=== PATIENT | female | born 1985 | race African-American/Black ===

== ENCOUNTER 2017-05-26 01:52 | Emergency (ER) | payer OTHER ==
--- NOTE | 2017-05-26 01:56 | PDOC ---
History of Present Illness - General History Source: Patient Exam Limitations: No Limitations - History of Present Illness Initial Comments: 05/26/17 02:33 The patient is a 31 year old female, an employee at our facility, with no significant PMH who presents to the emergency department after a needlestick. Patient will have an exposure work-up. Allergies: NKA Past surgical history: None reported Social history: No reported alcohol, drug, or cigarette use. <Patricia Johnson - Last Filed: 05/26/17 02:33> <Alina Strauss - Last Filed: 05/26/17 20:34> - General Stated Complaint: INJURY Time Seen by Provider: 05/26/17 01:55 Past History <Patricia Johnson - Last Filed: 05/26/17 02:33> <Alina Strauss - Last Filed: 05/26/17 20:34> - Past Medical History Allergies/Adverse Reactions: Allergies Allergy/AdvReac Type Severity Reaction Status Date / Time No Known Allergies Allergy Verified 05/26/17 02:08 Home Medications: Ambulatory Orders NK [No Known Home Medication] 05/26/17 Review of Systems - Review of Systems Able to Perform ROS?: Yes Comments:: 05/26/17 02:35 GENERAL/CONSTITUTIONAL: No fever or chills. No weakness. HEAD, EYES, EARS, NOSE AND THROAT: No change in vision. No ear pain or discharge. No sore throat. CARDIOVASCULAR: No chest pain or shortness of breath. RESPIRATORY: No cough, wheezing, or hemoptysis. GASTROINTESTINAL: No nausea, vomiting, diarrhea or constipation. GENITOURINARY: No dysuria, frequency, or change in urination. MUSCULOSKELETAL: No joint or muscle swelling or pain. No neck or back pain. SKIN: No rash NEUROLOGIC: No headache, vertigo, loss of consciousness, or change in strength/ sensation. ENDOCRINE: No increased thirst. No abnormal weight change. HEMATOLOGIC/LYMPHATIC: No anemia, easy bleeding, or history of blood clots. ALLERGIC/IMMUNOLOGIC: No hives or skin allergy. <Patricia Johnson - Last Filed: 05/26/17 02:33> *Physical Exam - Vital Signs Last Vital Signs Temp Pulse Resp BP Pulse Ox 98.0 F 91 H 16 138/66 99 05/26/17 02:06 05/26/17 02:06 05/26/17 02:06 05/26/17 02:06 05/26/17 02:06 - Physical Exam Comments: 05/26/17 02:35 GENERAL: Awake, alert, and fully oriented, in no acute distress HEAD: No signs of trauma EYES: PERRLA, EOMI, sclera anicteric, conjunctiva clear ENT: Auricles normal inspection, hearing grossly normal, nares patent, oropharynx clear without exudates. Moist mucosa NECK: Normal ROM, supple, no lymphadenopathy, JVD, or masses LUNGS: Breath sounds equal, clear to auscultation bilaterally. No wheezes, and no crackles HEART: Regular rate and rhythm, normal S1 and S2, no murmurs, rubs or gallops ABDOMEN: Soft, nontender, normoactive bowel sounds. No guarding, no rebound. No masses EXTREMITIES: Normal range of motion, no edema. No clubbing or cyanosis. No cords, erythema, or tenderness NEUROLOGICAL: Cranial nerves II through XII grossly intact. Normal speech, normal gait SKIN: Warm, Dry, normal turgor, no rashes or lesions noted. 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 She was using a butterfly needle. Was unable to get blood, so she attempted to drop the capped needle in the sharps container; however the needle came uncovered and stuck her in the hand. Pt is not sure if there was blood on the needle, and she didn't draw her own blood. SHe washed ehr hand after the incident. Pt who was getting his blood drawn has known Hep C, however he was HIV negative as on May 2015. He is allowing us to check his HIV test again. His name is Albin Mccallum <Alina Strauss - Last Filed: 05/26/17 20:34> *DC/Admit/Observation/Transfer - Attestations Scribe Attestion: 05/26/17 02:35 Documentation prepared by Patricia Johnson, acting as director global medical affairs for Alina Strauss MD. 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
[2017-05-26 02:27] VITALS: BP 138/66; PULSE 91; TEMP 98; BMI 47.2
[2017-05-26 03:08] LABS: BASO % 0.9 % (0-2.0); EOS % 1.2 % (0-4.5); HEMATOCRIT 40.2 % (32.4-45.2); LYMPH % 42.8 % (8-40); MCH 27.5 pg (25.7-33.7); MCHC 32.3 g/dl (32.0-36.0); MEAN CELL VOLUME 85.1 fl (80-96); MEAN PLT VOLUME 7.2 fl (7.5-11.1); MONO % 6.8 % (3.8-10.2); NEUT % 48.3 % (42.8-82.8); PLATELET COUNT 293 K/MM3 (134-434); RBC 4.73 M/mm3 (3.60-5.2); RDW 14.6 % (11.6-15.6); WHITE BLOOD COUNT 4.5 K/mm3 (4.0-10.0)
[2017-05-26 03:33] LABS: ALBUMIN 3.5 g/dl (3.4-5.0); ANION GAP 7 (8-16); BLOOD UREA NITROGEN 19 mg/dL (7-18); CALCIUM 8.7 mg/dL (8.5-10.1); CHLORIDE 108 mmol/L (98-107); CHOLESTEROL 230 mg/dL (50-200); CO2 23 mmol/L (21-32); CREATININE 0.9 mg/dL (0.55-1.02); GAMMA GLUTAMYL TRANSPEPTIDASE 36 U/L (5-85); GLUCOSE,RANDOM 100 mg/dL (74-106); LDH 176 U/L (84-246); PHOSPHOROUS 3.6 mg/dL (2.5-4.9); POTASSIUM 4.2 mmol/L (3.5-5.1); SGOT/AST 6 U/L (15-37); SGPT/ALT 23 U/L (12-78); SODIUM 138 mmol/L (136-145); TOT PROT 7.1 g/dl (6.4-8.2); TRIGLYCERIDES 90 mg/dL (35-160); URIC ACID 4.7 mg/dL (2.6-7.2)
[2017-05-26 03:35] LABS: ALK PHOS 69 U/L (45-117); BILIRUBIN,TOTAL 0.3 mg/dL (0.2-1.0)
[2017-05-27 06:36] LABS: HBsAG SCREEN Negative (Negative); HEPATITIS B CORE ANTIBODY Negative (Negative)
== END 2017-05-26 04:14 | disposition home or self-care (01) ==
LOC: JER 01:52
DX: Z77.21 Contact with and (suspected) exposure to potentially hazardous body fluids (principal); S61.439A Puncture wound without foreign body of unspecified hand, initial encounter; W46.1XXA Contact with contaminated hypodermic needle, initial encounter; Y93.F9 Activity, other caregiving; Y92.238 Other place in hospital as the place of occurrence of the external cause; Y99.0 Civilian activity done for income or pay
CPT/HCPCS: 36415; 80053; 82465; 82977; 83615; 84100; 84478; 84550; 85025; 86704; 86803; 87340; 87389; 99281-25

== ENCOUNTER 2017-07-05 08:04 | Emergency (ER) | payer OTHER ==
[2017-07-05 08:09] VITALS: BP 117/73; PULSE 83; TEMP 98.4; BMI 38.6
--- NOTE | 2017-07-05 08:44 | PDOC ---
History of Present Illness - General Chief Complaint: Injury Stated Complaint: INJURY TO FINGER (EMPLOYEE) Time Seen by Provider: 07/05/17 08:14 History Source: Patient Exam Limitations: No Limitations - History of Present Illness Initial Comments: CHIEF COMPLAINT: 31 y/o female with injury to right middle finger at work this morning. 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 She states the finger is sore but she can move it with minimal pain. She denies numbness/tingling. Past History - Past Medical History Allergies/Adverse Reactions: Allergies Allergy/AdvReac Type Severity Reaction Status Date / Time No Known Allergies Allergy Verified 07/05/17 08:09 Home Medications: Ambulatory Orders NK [No Known Home Medication] 05/26/17 COPD: No - Immunization History Immunization Up to Date: Yes - Suicide/Smoking/Psychosocial Hx Smoking History: Never smoked Have you smoked in the past 12 months: No Hx Alcohol Use: No Drug/Substance Use Hx: No Substance Use Type: None Review of Systems - Review of Systems Able to Perform ROS?: Yes Constitutional: No: Symptoms Reported HEENTM: No: Symptoms Reported Musculoskeletal: Yes: Joint Pain (right middle finger) Integumentary: No: Symptoms Reported Neurological: No: Symptoms reported *Physical Exam - Vital Signs Last Vital Signs Temp Pulse Resp BP Pulse Ox 98.4 F 83 18 117/73 97 07/05/17 08:06 07/05/17 08:06 07/05/17 08:06 07/05/17 08:06 07/05/17 08:06 - Physical Exam General Appearance: Yes: Nourished Musculoskeletal: positive: Normal Inspection Extremity: positive: Normal Capillary Refill, Normal Range of Motion, Tender ( minimal TTP of DIP joint of right middle finger), Other (Full flexion and extension of MCP, PIP and DIP joint of right middle finger. No abrasions or lacerations). negative: Swelling, Erythema, Inflammation Medical Decision Making - Medical Decision Making A/P: 31 y/o female with right middle finger sprain at work this morning. Patient has full ROM of all joints of affected finger. No swelling, erythema, warmth or abrasions to affected finger. NO need for imaging at this time. Mauricio taped affected finger to adjacent finger. suggested motrin for swelling/ pain and ice. INstructed her to return to the ER with any worsening or concerning symptoms. The patient verbalizes understanding of all instructions, has no further questions and is awaiting discharge. *DC/Admit/Observation/Transfer Diagnosis at time of Disposition: Finger sprain Qualifiers: Encounter type: initial encounter Finger: middle finger Sprain of finger site: unspecified site Laterality: right Qualified Code(s): S63.612A - Unspecified sprain of right middle finger, initial encounter - Discharge Dispostion Disposition: HOME Condition at time of disposition: Good - Referrals - Patient Instructions Printed Discharge Instructions: DI for Finger Sprain Additional Instructions: Discharge INstructions: -Take Motrin for pain/swelling -Apply ice to affected finger -Mauricio tape your finger to the one next to it to help with pain -Return to the ER with any worsening or concerning symptoms - Post Discharge Activity Forms/Work/School Notes: Back to Work
== END 2017-07-05 08:49 | disposition home or self-care (01) ==
LOC: JERFT 08:04
DX: S63.632A Sprain of interphalangeal joint of right middle finger, initial encounter (principal); X50.0XXA Overexertion from strenuous movement or load, initial encounter; Y93.89 Activity, other specified; Y92.238 Other place in hospital as the place of occurrence of the external cause; Y99.0 Civilian activity done for income or pay
CPT/HCPCS: 99281-25